=== PATIENT | female | born 1985 | race Asian ===

== ENCOUNTER 2018-02-07 10:15 | Emergency (ER) | payer MEDICAID ==
[~2018-02-07] VITALS: Ht 152.4 cm; Wt 39.5 kg
[2018-02-07 10:29] VITALS: Ht 152.4 cm; Wt 39.5 kg
[2018-02-07 11:14] LABS: BASOPHIL % 0.4 % (0-2); PLATELET COUNT 226 x10^3mcL (130-400); RED CELL DISTRIBUTION WIDTH 12.4 % (11.5-14.5)
[2018-02-07 11:20] LABS: CALCIUM 8.2 mg/dL (8.5-10.1); CARBON DIOXIDE 27.8 mmol/L (21-32); CHLORIDE SERUM 105 mmol/L (98-107); CREATININE SERUM 0.5 mg/dL (0.6-1.0); GFR1 > 60 mL/min; GLUCOSE SERUM 86 mg/dL (74-106); POTASSIUM SERUM 3.9 mmol/L (3.5-5.1); SODIUM SERUM 139 mmol/L (136-145)
[2018-02-07 11:32] LABS: ALBUMIN 3.4 g/dL (3.4-5.0); ALKALINE PHOSPHATASE 87 U/L (46-116); ALT/SGPT 17 U/L (14-59); AST/SGOT 17 U/L (15-37); BILIRUBIN TOTAL 0.8 mg/dL (0.20-1.00); MAGNESIUM 1.8 mg/dL (1.8-2.4); T4(THYROXINE) 8.7 ug/dL (4.7-13.3)
[2018-02-07 12:13] LABS: microscopic required? YES; urine erythrocyte 2+ (NEGATIVE)
[2018-02-07 12:30] VITALS: BP 97/66
== END 2018-02-07 12:43 | disposition home or self-care (01) ==
LOC: ED 10:15
PROVIDERS: Emergency Medicine
DX: R55 Syncope and collapse (principal); N92.1 Excessive and frequent menstruation with irregular cycle; R42 Dizziness and giddiness
CPT/HCPCS: 82962; 83880; Q0092